=== PATIENT | male | born 1955 | race Caucasian/White ===

== ENCOUNTER 2020-12-21 11:09 | Inpatient (IN) | payer MEDICARE ==
[~2020-12-21] VITALS: Ht 175.3 cm; Wt 95.7 kg
[~2020-12-21 11:09] MED LIST: ALDACTONE25 MG PO; COREG6.25 MG PO; LASIX40 MG PO; NORVASC2.5 MG PO; SYNTHROID25 MCG PO; VENTOLIN HFA 66.7 GM INH; ZOLOFT100 MG PO
[2020-12-21 12:23] LABS: HEMOGLOBIN 14.5 gm/dl (14.0-17.5); RED BLOOD COUNT 5.34 M/UL (4.20-5.50)
[2020-12-21] MEDS ORDERED: ZESTRIL10 MG PO (14:50)
[2020-12-21] MEDS ORDERED: KLOR-CON M1010 MEQ PO (14:50)
[2020-12-21] MEDS ORDERED: GLUCOPHAGE XR500 MG PO (14:51)
[2020-12-21] MEDS ORDERED: FLOMAX 0.4 MG0.4 MG PO (14:51)
[2020-12-21] MEDS ORDERED: LIPITOR80 MG PO (14:52)
[2020-12-21] MEDS ORDERED: CYCLOBENZAPRINE10 MG PO (14:55)
[2020-12-21] MEDS ORDERED: RELAFEN750 MG PO (14:56)
[2020-12-21] MEDS ORDERED: ASPIRIN EC81 MG PO (16:08)
[2020-12-21] MEDS ORDERED: VITAMIN D350 MC3 PO (16:08)
[2020-12-21] MEDS ORDERED: B-12500 MCG PO (16:08)
[2020-12-22 03:36] LABS: HEMOGLOBIN 12.8 gm/dl (14.0-17.5); RED BLOOD COUNT 4.87 M/UL (4.20-5.50); WHITE BLOOD COUNT 6.9 K/UL (4.5-11.0)
--- NOTE | 2020-12-22 07:45 | NUR ---
TELEMETRY NOTIFIED RN OF MULTIPLE RUNS OF NSVT. RN RECEIVED IN SHIFT REPORT THAT MD HAD BEEN NOTIFIED AND LABS WERE ORDERED ALONG WITH AN EKG. PENDING RESULTS.
--- NOTE | 2020-12-22 12:40 | NUR ---
RN ATTEMPTED TO CONTACT DR. GARCIA 3 TIMES VIA TELEPHONE ON LISTED FIRST PREFERENCE PHONE NUMBER TO INFORM HER OF 24 BEATS OF VTACH (SINCE CORRECTED BY IMPLANTED AICD). RN LEFT CALL BACK EXTENSION NUMBER FOR MD ON ANSWERING MACHINE. ON ASSESSMENT, PATIENT NOTED TO BE RESTING IN BED, FAMILY AT BEDSIDE. NO S/SX OF DISTRESS. BED LOCKED AND LOW. CALL LIGHT WITHIN REACH.
[2020-12-23 03:36] LABS: HEMOGLOBIN 13.4 gm/dl (14.0-17.5); RED BLOOD COUNT 4.93 M/UL (4.20-5.50); WHITE BLOOD COUNT 8.2 K/UL (4.5-11.0)
[2020-12-23 03:56] LABS: BUN/CREATININE RATIO 32 (0-10)
[2020-12-24 03:39] LABS: HEMOGLOBIN 13.2 gm/dl (14.0-17.5); RED BLOOD COUNT 4.99 M/UL (4.20-5.50); WHITE BLOOD COUNT 7.8 K/UL (4.5-11.0)
[2020-12-24 04:01] LABS: BUN/CREATININE RATIO 34 (0-10)
[2020-12-25 05:04] LABS: HEMOGLOBIN 12.8 gm/dl (14.0-17.5); RED BLOOD COUNT 4.82 M/UL (4.20-5.50); WHITE BLOOD COUNT 8.8 K/UL (4.5-11.0)
[2020-12-25 05:26] LABS: BUN/CREATININE RATIO 30 (0-10)
[2020-12-25 09:14] LABS: HBSAG SCREEN Negative (Negative); HEP A AB, IGM Negative (Negative); HEP B CORE AB, IGM Negative (Negative); HEP C VIRUS AB <0.1 (0.0-0.9)
[2020-12-26 04:48] LABS: HEMOGLOBIN 12.3 gm/dl (14.0-17.5)
[2020-12-26 04:51] LABS: RED BLOOD COUNT 3.64 M/UL (4.20-5.50); WHITE BLOOD COUNT 4.1 K/UL (4.5-11.0)
[2020-12-26 05:10] LABS: BUN/CREATININE RATIO 30 (0-10)
[2020-12-27 04:33] LABS: HEMOGLOBIN 12.5 gm/dl (14.0-17.5); RED BLOOD COUNT 4.73 M/UL (4.20-5.50)
[2020-12-27 04:51] LABS: BUN/CREATININE RATIO 31 (0-10)
[2020-12-28 02:51] LABS: HEMOGLOBIN 12.2 gm/dl (14.0-17.5); RED BLOOD COUNT 4.66 M/UL (4.20-5.50); WHITE BLOOD COUNT 5.9 K/UL (4.5-11.0)
[2020-12-28 03:14] LABS: BUN/CREATININE RATIO 29 (0-10)
[2020-12-29 11:36] LABS: HEMOGLOBIN 13.8 gm/dl (14.0-17.5)
[2020-12-29 12:03] LABS: RED BLOOD COUNT 5.25 M/UL (4.20-5.50); WHITE BLOOD COUNT 11.4 K/UL (4.5-11.0)
[2020-12-30 07:44] LABS: HEMOGLOBIN 13.5 gm/dl (14.0-17.5); RED BLOOD COUNT 5.3 M/UL (4.20-5.50); WHITE BLOOD COUNT 9.8 K/UL (4.5-11.0)
[2020-12-31 03:37] LABS: HEMOGLOBIN 12.9 gm/dl (14.0-17.5); RED BLOOD COUNT 4.99 M/UL (4.20-5.50); WHITE BLOOD COUNT 8.8 K/UL (4.5-11.0)
[2021-01-01 02:55] LABS: HEMOGLOBIN 12.3 gm/dl (14.0-17.5); RED BLOOD COUNT 4.77 M/UL (4.20-5.50); WHITE BLOOD COUNT 7.3 K/UL (4.5-11.0)
--- NOTE | 2021-01-02 19:37 | NUR ---
pt attempted to get him out of the chair and back to bed. pt got light headed and went to his knees. we assisted pt back to bed. pt became non resposive. WHIPPED TOPPING FINISHER WAS CALLED (SEE WHIPPED TOPPING FINISHER NOTE). PT WAS PLACED ON BI PAP. DOBUTIME WAS INCREASED AND BICARB DRIP WAS STARTED.
[2021-01-03 04:14] LABS: HEMOGLOBIN 10.5 gm/dl (14.0-17.5)
[2021-01-03 04:20] LABS: RED BLOOD COUNT 4.17 M/UL (4.20-5.50)
--- NOTE | 2021-01-03 04:21 | NUR ---
Phoned Dr. Mcfarland due to patient having increased PVCs and Bigeminy at times. this is increasing in frequency. orders received decrease dobutamine from 15mcg to 5mcg. have labs drawn now if not already done.Continue to monitor.
[2021-01-03 04:37] LABS: BUN/CREATININE RATIO 58 (0-10)
--- NOTE | 2021-01-03 05:14 | NUR ---
critical labs called to Dr. Mcfarland, sodium 112 down from 121, glucose 580. orders received given 15 units regular insulin IVP once, recheck blood sugar in one hour.
--- NOTE | 2021-01-07 02:58 | NUR ---
KOHLER REMOVED. POST VOID 250 ML.
[2021-01-07] MEDS ORDERED: LOPRESSOR 25 MG25 MG PO (11:40)
== END 2021-01-07 13:42 | disposition home or self-care (01) | DRG 226 ==
LOC: ER1 11:09 → CDU 14:40 → MED SURG 4 14:40 → PROG CARE 15:34 → MED SURG 4 17:31 → PROG CARE 12-27 16:49
PROVIDERS: Internal Medicine; Internal Medicine Cardiovascular Disease; Internal Medicine Nephrology; Nurse Practitioner; Physician Assistant; Student in an Organized Health Care Education/Training Program; ADMIT Internal Medicine
PROC: B24BZZ4 Ultrasonography of Heart with Aorta, Transesophageal (ICD-10-PCS; 2020-12-23)
PROC: 0JH608Z Insertion of Defibrillator Generator into Chest Subcutaneous Tissue and Fascia, Open Approach (ICD-10-PCS; principal; 2020-12-31)
PROC: 02HL3KZ Insertion of Defibrillator Lead into Left Ventricle, Percutaneous Approach (ICD-10-PCS; 2020-12-31)
PROC: 0JPT0PZ Removal of Cardiac Rhythm Related Device from Trunk Subcutaneous Tissue and Fascia, Open Approach (ICD-10-PCS; 2020-12-31)
PROC: 02PA0MZ Removal of Cardiac Lead from Heart, Open Approach (ICD-10-PCS; 2020-12-31)
PROC: 02H70KZ Insertion of Defibrillator Lead into Left Atrium, Open Approach (ICD-10-PCS; 2020-12-31)
DX: I13.0 Hypertensive heart and chronic kidney disease with heart failure and stage 1 through stage 4 chronic kidney disease, or unspecified chronic kidney disease (principal); I50.23 Acute on chronic systolic (congestive) heart failure; I21.4 Non-ST elevation (NSTEMI) myocardial infarction; I46.2 Cardiac arrest due to underlying cardiac condition; I47.2 Ventricular tachycardia; E87.1 Hypo-osmolality and hyponatremia; N17.9 Acute kidney failure, unspecified; T82.128A Displacement of other cardiac electronic device, initial encounter; R18.8 Other ascites; Z20.822 Contact with and (suspected) exposure to COVID-19; I95.9 Hypotension, unspecified; R13.10 Dysphagia, unspecified; I27.20 Pulmonary hypertension, unspecified; F32.9 Major depressive disorder, single episode, unspecified; F41.9 Anxiety disorder, unspecified; E86.0 Dehydration; N20.0 Calculus of kidney; E87.5 Hyperkalemia; E03.9 Hypothyroidism, unspecified; E78.5 Hyperlipidemia, unspecified; E66.9 Obesity, unspecified; N18.30 Chronic kidney disease, stage 3 unspecified; N40.0 Benign prostatic hyperplasia without lower urinary tract symptoms; G47.00 Insomnia, unspecified; J45.909 Unspecified asthma, uncomplicated; K59.00 Constipation, unspecified; E83.42 Hypomagnesemia; I44.7 Left bundle-branch block, unspecified; E78.00 Pure hypercholesterolemia, unspecified; E11.22 Type 2 diabetes mellitus with diabetic chronic kidney disease; Y65.8 Other specified misadventures during surgical and medical care; I25.10 Atherosclerotic heart disease of native coronary artery without angina pectoris; I25.5 Ischemic cardiomyopathy; Z95.1 Presence of aortocoronary bypass graft; Z95.5 Presence of coronary angioplasty implant and graft; Z86.16 Personal history of COVID-19; Z95.810 Presence of automatic (implantable) cardiac defibrillator; Z88.0 Allergy status to penicillin; Z82.49 Family history of ischemic heart disease and other diseases of the circulatory system; Z83.3 Family history of diabetes mellitus; Z88.8 Allergy status to other drugs, medicaments and biological substances; Z88.6 Allergy status to analgesic agent; Z79.4 Long term (current) use of insulin; Z68.28 Body mass index [BMI] 28.0-28.9, adult
CPT/HCPCS: ECHO; 33225; 33234; 33249; 36415; 36600; 71045; 76705; 80048; 80053; 80074; 81001; 82436; 82550; 82553; 82570; 82803; 82962; 83605; 83690; 83735; 83874; 83880; 83935; 84100; 84133; 84156; 84295; 84300; 84439; 84443; 84484; 85025; 85027; 85652; 86140; 87040; 92610; 93005; 93306; 93641; 94640; 94660; 94664; 94760; 96374; 96375; 97110-GP-CQ; 97116; 97116-GP-CQ; 97161; 97530-GP-CQ; 99152; 99153; 99285; C1751; C1769; C1777; C1882; C1898; C1900; J0692; J1250; J1644; J1940; J2250; J2260; J2270; J2405; J3010; J3370; J3475; J7030; J7040; J7050; J7070; P9047; Q0177; Q9965; U0002